=== PATIENT | female | born 1960 | race Caucasian/White ===

== ENCOUNTER → 2016-09-03 | Outpatient (CLI) | payer MEDICAID | END | disposition home or self-care (01) | LOC: CHF HDHVI 10:29 | PROVIDERS: ATTEND Internal Medicine Cardiovascular Disease | DX: I25.10 Atherosclerotic heart disease of native coronary artery without angina pectoris (principal); E03.8 Other specified hypothyroidism; Z95.1 Presence of aortocoronary bypass graft; I48.91 Unspecified atrial fibrillation | CPT/HCPCS: 93306 ==

== ENCOUNTER → 2016-09-18 | Outpatient (CLI) | payer MEDICAID ==
[~2016-09-18] VITALS: Ht 165.1 cm; Wt 70.8 kg
== END | disposition home or self-care (01) ==
LOC: Rad HDHVI 09:31
PROVIDERS: ATTEND Internal Medicine Cardiovascular Disease
DX: I48.91 Unspecified atrial fibrillation (principal); I25.10 Atherosclerotic heart disease of native coronary artery without angina pectoris; Z95.1 Presence of aortocoronary bypass graft; I49.1 Atrial premature depolarization; E03.9 Hypothyroidism, unspecified
CPT/HCPCS: 93017

== ENCOUNTER 2022-07-07 14:45 | Emergency (ER) | payer OTHER, MEDICAID ==
[~2022-07-07] VITALS: Ht 165.1 cm; Wt 76.7 kg
[2022-07-07 15:46] VITALS: BP 151/86
[2022-07-07] MEDS ORDERED: ACETAMINOPHEN 500 MG TAB PO ONE (16:00)
[2022-07-07] MEDS ORDERED: CYCL-837 PO (16:37)
== END 2022-07-07 17:02 | disposition home or self-care (01) ==
LOC: ER 14:45
DX: S46.912A Strain of unspecified muscle, fascia and tendon at shoulder and upper arm level, left arm, initial encounter (principal); S39.012A Strain of muscle, fascia and tendon of lower back, initial encounter; Z88.6 Allergy status to analgesic agent; V43.52XA Car driver injured in collision with other type car in traffic accident, initial encounter; Y93.89 Activity, other specified; Y92.410 Unspecified street and highway as the place of occurrence of the external cause; Y99.8 Other external cause status
CPT/HCPCS: 72100; 73030